=== PATIENT | male | born 1980 | race Caucasian/White ===

== ENCOUNTER 2019-10-21 14:59 | Emergency (ER) | payer OTHER ==
[~2019-10-21] VITALS: Ht 172 cm; Wt 112.0 kg
[2019-10-21 15:07] VITALS: BP 124/71
--- NOTE | 2019-10-21 15:30 | ED Neurological Problem ---
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 Pt back to baseline and does not appear post-ictal at this time. Pt states he is extremely compliant with him meds and is due to have them filled tomorrow. A/Ox4. Nursing Sepsis Screen: No Definite Risk History of Present Illness Date Seen by Provider: October 21, 2019 Time Seen by Provider: 15:10 Initial Comments 39-year-old male presents after having a seizure at work. He is from [place] is working locally at the [employer]. He takes phenobarbital and Topamax for seizures, he reports never missing a dose. His last seizure was approximately 5 years ago. He was sitting in a truck, when the seizure occurred. He was assisted out of the truck and laid on the ground. He did not have any injuries at the time of the seizure. He was incontinent of urine. EMS arrived and he was postictal. A medic at the job site was called and witnessed the seizure. Patient denies being under additional stress or other causes of the seizure. He has a superficial abrasion to his left hand. His last tetanus vaccine was 3-4 years ago. Timing/Duration: 1/2 hour Severity: mild Associated Symptoms: denies symptoms Allergies and Home Medications Patient Home Medication List Home Medication List Reviewed: Yes Review of Systems Review of Systems Constitutional: no symptoms reported, see HPI Psychiatric/Neurological: Tonic Clonic Seizures All Other Systems Reviewed Negative Unless Noted: Yes Past Njhshkn-Ozjunf-[place] Hx Past Med/Social Hx: Reviewed Nursing Past Med/Soc Hx Patient Social History Alcohol Use: Denies Use Recreational Drug Use: No Smoking Status: Never a Smoker 2nd Hand Smoke Exposure: No Recent Foreign Travel: No Contact w/Someone Who Travel: No Recent Infectious Disease Expo: No Recent Hopitalizations: No Physical Abuse: No Sexual Abuse: No Mistreated: No Fear: No Seasonal Allergies Seasonal Allergies: No Past Medical History Surgeries: Yes (Spinal/neurostimulator) Respiratory: No Cardiac: No Neurological: Yes Seizure Disorder Genitourinary: No Gastrointestinal: No Musculoskeletal: No Endocrine: No HEENT: No Cancer: No Psychosocial: No Integumentary: No Blood Disorders: No Physical Exam Vital Signs Vital Signs - First Documented Capillary Refill : Less Than 3 Seconds Height, Weight, BMI Height: '" Weight: lbs. oz. 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, no motor/sensory deficits, alert, normal mood/affect, oriented x 3 Crainal Nerves: normal hearing, normal speech, PERRL Coordination/Gait: normal finger to nose, normal gait Motor/Sensory: no motor deficit, no sensory deficit Skin: normal color, warm/dry Progress/Results/Core Measures Results/Orders Vital Signs/I&O 10/21/19 10/21/19 10/21/19 15:07 15:07 15:35 Temp 37.0 37.0 Pulse 91 91 87 Resp 16 16 16 B/P (MAP) 124/71 (88) 124/71 (88) 122/68 Pulse Ox 97 97 97 O2 Delivery Room Air Room Air Room Air Blood Pressure Mean: 88 Progress Progress Note : Time: 15:10 Progress Note patient seen and evaluated. Will monitor and re-assess prior to planning discharge. 1540 Patient has remained, alert, neurovascularly intact, no further seizure activity. 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 No nause or vomiting. Stressed the importance of the patient not driving until cleared by medical provider, his boss is here to drive him home. Discharge instructions and return precautions reviewed with the patient. Departure Impression Primary Impression: Seizure Disposition: 01 HOME, SELF-CARE Condition: Improved Departure-Patient Inst. Decision time for Depature: 15:35 Referrals: [facility] [place] Instructions: Seizures, Adult (DC) Add. Discharge Instructions: Continue to take your seizure medicine as prescribed. Increase water intake, 16 ounces every 2 hours while awake. Follow-up with the clinic at the [facility] as needed. Return to the emergency department for new, urgent health care needs. All discharge instructions reviewed with patient and/or family. Voiced understanding. Work/School Note: Work Release Form Date Seen in the Emergency Department: October 21, 2019 Return to Work: October 22, 2019 Restrictions: Need Release from Doctor Other Restrictions Listed Below: No elevated work, no driving or equipment, until cleared SUGAR KILPATRICK October 21, 2019 15:30
[2019-10-21 15:35] VITALS: BP 122/68
== END 2019-10-21 15:47 | disposition home or self-care (01) ==
LOC: ER 15:00
DX: G40.909 Epilepsy, unspecified, not intractable, without status epilepticus (principal)
CPT/HCPCS: 99283